=== PATIENT | female | born 1985 | race Two or more races ===

== ENCOUNTER 2018-01-28 13:32 | Emergency (ER) | payer SELFPAY ==
[~2018-01-28] VITALS: Ht 165.1 cm; Wt 75.0 kg
[2018-01-28 13:33] VITALS: BP 130/82
[2018-01-28] MEDS ORDERED: LIDOCAINE 1%-EPI 1:100K, 30ML ONE (14:27)
[2018-01-28] MEDS ORDERED: BUPIVACAINE 0.25% ONE (14:28)
[2018-01-28] MEDS ORDERED: LIDOCAINE-MPF 2% ,5ML ONE (14:28)
[2018-01-28] MEDS ORDERED: LIDOCAINE 2%, 20ML SQ ONE (14:30)
[2018-01-28] MEDS ORDERED: BUPIVACAINE/PF-EPI 0.25% 1:200K SQ ONE (14:30)
== END 2018-01-28 14:58 | disposition home or self-care (01) ==
LOC: ED 14:52
DX: K08.89 Other specified disorders of teeth and supporting structures (principal)
CPT/HCPCS: 64400; 99284; J3490; 90471